=== PATIENT | male | born 1990 | race Caucasian/White ===

== ENCOUNTER 2023-06-22 09:57 | Outpatient (AMB) | payer BC, SELFPAY ==
[2023-06-22 10:02] VITALS: BP 124/78; PULSE 77; O2SAT 98; BMI 28.8
--- NOTE | 2023-06-22 10:02 | MHC.PC.OV ---
Vital Signs 06/22/23 10:02 Height 5 ft 10 in Weight 201 lb BMI 28.8 BP 124/78 Blood Pressure Location Lt brachial Position Sitting Pulse 77 Pulse Source Pulse Oximeter Pulse Oximetry (%) 98 Oxygen Delivery Method Room Air Intake Visit Reasons: Annual Exam Allergies No Known Allergies Allergy (Verified 06/22/23 10:02) Medication List - Last Reconciled 06/22/23 by Renard Fabian MD cetirizine (Zyrtec) 10 mg PO DAILY multivitamin 1 tab PO DAILY Tobacco use date assessed: 06/22/23 Dental Screening Dental Screen Date: 06/22/23 Did you have a dental visit in the last 12 months?: Yes Did you have a dental problem in the last 6 months where you did not have access to dental care?: No Was dental information given to patient?: Patient has dentist HPI Annual Exam HPI Details 32-year-old overweight male with a history of allergic rhinitis coming in for physical exam. Last seen in May 2022- dry cough - 6 weeks getting better- feels throat dry. occ heartburn PFSH Surgical History (Updated 07/20/21 @ 09:41 by Renard Fabian MD) Hx of LASIK No pertinent past surgical history Family History (Updated 06/22/23 @ 10:27 by Renard Fabian MD) Father Kidney malignancy Hypertension Mother Breast cancer Hypertension Paternal Grandfather Pancreatic cancer Paternal Uncle CVA (cerebral vascular accident) Paternal Aunt Kidney malignancy Social History (Updated 06/22/23 @ 10:27 by Renard Fabian MD) Housing: House Alcohol intake: current Patient Tobacco Use Status: Never used Tobacco e-Cigarette/Vaping Use: Never Used Second Hand Smoke Exposure: No Current occupational status: employed Cognitive needs: No Hearing needs: No Vision needs: No Questionnaire PHQ-9 Over the last 2 weeks, how often have you been bothered by any of the following problems? 1. Little interest or pleasure in doing things: not at all 2. Feeling down, depressed, or hopeless: not at all 3. Trouble falling or staying asleep, or sleeping too much: not at all 4. Feeling tired or having little energy: not at all 5. Poor appetite or overeating: not at all 6. Feeling bad about yourself - or that you are a failure or have let yourself or your family down: not at all 7. Trouble concentrating on things, such as reading the newspaper or watching television: not at all 8. Moving or speaking so slowly that other people could have noticed. Or the opposite - being so fidgety or restless that you have been moving around a lot more than usual: not at all 9. Thoughts that you would be better off or of hurting yourself in some way: not at all Total score: 0 Depression Screening Interpretation: Negative Depression Screening Done: Yes Source: Developed by Drs. Blaine Hallman, Geno Staton, Andres Maddox and colleagues, with an educational heena from [employer]. Thrive Questionnaire Date Thrive assessed: 06/22/23 I am a: Patient What is your living situation today?: I have a steady place to live Within the past 12 months, did the food you bought not last and you didn't have the money to get more?: Never true Within the past 12 months, did you worry whether your food would run out before you got money to buy more?: Never true Do you have trouble paying for medicines?: No Do you have trouble getting transportation to medical appointments?: No Do you have trouble paying your heating and electricity bill?: No Do you have trouble taking care of your child, family member or friend?: No Do you have trouble with day-to-day activities such as bathing, preparing meals, shopping, managing finances, etc.?: No Are you currently unemployed and looking for a job?: No Are you interested in more education?: No Currently or been in a relationship where the following occur: no concerns reported AUDIT C Alcohol Use Questionnaire (AUDIT-C) 1. How often do you have a drink containing alcohol?: Monthly or less 2. How many drinks containing alcohol do you have on a typical day when you are drinking?: 1 or 2 3. How often do you have six or more drinks on one occasion?: Never Total Score: 1 MARTITA-7 AMB Questionnaire MARTITA-7 Date MARTITA - 7 assessed: 06/22/23 Feeling nervous, anxious, or on edge: 0 = Not at all Not being able to stop or control worryin = Not at all Worrying too much about different things: 0 = Not at all Trouble relaxin = Not at all Being so restless that it is hard to sit still: 0 = Not at all Becoming easily annoyed or irritable: 0 = Not at all Feeling afraid as if something awful might happen: 0 = Not at all Total MARTITA-7 score (0-4 normal; 5-9 mild; 10-14 moderate; 15-21 severe): 0 Source: Developed by Drs. Blaine Hallman, Geno Staton, Andres Maddox and colleagues, with an educational heena from [employer]. Physical exam (Primary Care) Vital Signs: Last Vital Signs Pulse 77 06/22/23 10:02 BP 124/78 06/22/23 10:02 Pulse Ox 98 06/22/23 10:02 Oxygen Delivery Method Room Air 06/22/23 10:02 BMI result Body Mass Index 28.8 Tobacco/Smoking Status: Tobacco use Status Tobacco use date assessed 06/22/23 06/22/23 10:04 Patient Tobacco Use Status Never used Tobacco 06/22/23 10:04 e-Cigarette/Vaping Use Never Used 06/22/23 10:04 PHQ-9: PHQ-9 Score PHQ-9: Total score 0 06/22/23 10:04 Depression Screening Interpretation: Negative Thrive Assessment: Date of Thrive Assessment Date Thrive assessed 06/22/23 06/22/23 10:04 Currently or been in a relationship where the following occur: no concerns reported Const General: alert and awake HENMT Head: Yes normocephalic Ears: external ears normal and TM's normal bilaterally Face and sinus: Yes normal facial exam Mouth: moist mucous membranes Throat: Yes tonsils normal Eyes Conjunctivae: conjunctivae normal Pupils: Equal, round and reactive pupils present and Pupil accommodation reflex normal Direct Ophthalmoscopy: normal light reflex Neck Neck: No lymphadenopathy Thyroid: Thyroid normal Chest Chest palpation & inspection: normal inspection of the chest Resp Effort & Inspection: normal respiratory effort and no audible wheezes Auscultation: clear to auscultation bilaterally, no crackles, no wheezes and lung sounds not diminished Cardio Rate: regular rate Rhythm: regular rhythm Peripheral pulses: radial pulses present and dorsalis pedis present GI Palpation (GI): no masses Auscultation: normal bowel sounds and normoactive bowel sounds Rectal Exam - Male: Yes deferred Skin General skin exam: no rashes or lesions noted Rashes: no rashes Neuro General: deep tendon reflexes 2+ bilaterally Cranial nerves: Yes Equal, round and reactive pupils present, Yes Midline tongue present and Yes Ability to bilaterally elevate shoulders present Cognition (Neuro): normal cognition Gait exam (Neuro): Normal gait present Motor exam (neuro): 5/5 motor strength present throughout Deep tendon reflexes (DTR's): Right brachioradialis reflex intensity grade: 2+, Left brachioradialis reflex intensity grade: 2+, Right patellar reflex intensity grade: 2+ and Left patellar reflex intensity grade: 2+ Extrem General: No edema Office Procedures Flu Questionnaire Does the patient have a severe egg allergy?: No Does the patient have severe life threatening allergies?: No Does the patient have a fever or illness today?: No Has the patient ever had Guillain-[place] Syndrome?: No Has the patient ever had any past reaction to a flu shot?: No Immunizations flu vacc [id number] 6mos up(PF) 60 mcg(15 mcgx4)/0.5 mL IM syringe Performing Provider: Renard Fabian MD [facility] Administered by: Tamiko Bajwa CMA on 06/22/23 10:14 Dose Route Admin Location Dispensed Lot Number Expiration Date NDC Strategic Analyst 0.5 mL IM Left Deltoid 0.5 mL [id number] 02/25/24 [id number] [employer] VIS Given Date VIS Provided VIS Publication Date 06/22/23 Single Vaccine 21 Eligibility Eligibility Date Funding Source Not [facility] Eligible 06/22/23 Private Assessment and Plan Assessment & Plan (1) Annual physical exam: Code(s): Z00.00 - Encounter for general adult medical examination without abnormal findings (2) Multiple pigmented nevi: Code(s): D22.9 - Melanocytic nevi, unspecified (3) Dry mouth: Code(s): R68.2 - Dry mouth, unspecified (4) Allergic rhinitis: Code(s): J30.9 - Allergic rhinitis, unspecified Orders: Orders Free T4 (Free Thyroxine) Today R68.2 - Dry mouth, unspecified Lipid Panel Today E78.00 - Pure hypercholesterolemia, unspecified, R68.2 - Dry mouth, unspecified Vitamin B12 and Folate Today R68.2 - Dry mouth, unspecified Influenza [id number] Immunization Today Z23 - Encounter for immunization Complete Blood Count Auto Diff Today R68.2 - Dry mouth, unspecified Comprehensive Met. Panel Today R68.2 - Dry mouth, unspecified Thyroid Stimulating Hormone Today R68.2 - Dry mouth, unspecified Erythrocyte Sedimentation Rate Today R68.2 - Dry mouth, unspecified C Reactive Protein Today R68.2 - Dry mouth, unspecified Referrals Dermatology Referral D22.9 - Melanocytic nevi, unspecified Coding Level of Care Code Est Pt Prev Care 18-39y(85952) Diagnoses Annual physical exam Z00.00 Multiple pigmented nevi D22.9 Dry mouth R68.2 Allergic rhinitis J30.9
== END 2023-06-22 10:50 | disposition home or self-care (01) ==
PROVIDERS: Visit Provider Internal Medicine
DX: Z00.00 Encounter for general adult medical examination without abnormal findings (principal); D22.9 Melanocytic nevi, unspecified; R68.2 Dry mouth, unspecified; J30.9 Allergic rhinitis, unspecified; Z23 Encounter for immunization
CPT/HCPCS: 90471; 90686; 99395

== ENCOUNTER 2023-06-27 08:47 | Outpatient (REF) | payer BC, SELFPAY ==
[2023-06-27 09:21] LABS: MANUAL DIFF FLAG NO
[2023-06-27 09:34] LABS: Basophils Absolute Auto 0.1 X10*3/uL (0.0-0.2); Basophils Percent Auto 1.2 % (0-2); Eosinophils Absolute Auto 0.1 X10*3/uL (0.0-0.4); Eosinophils Percent Auto 1.4 % (0-4); Hematocrit 45.1 % (42.0-52.0); Hemoglobin 15.3 g/dl (14.0-18.0); Imm Gran Abs Auto 0.01 X10*3/uL (0.00-0.03); Imm Gran Pct Auto 0.2 % (0.0-0.4); Lymphocytes Absolute Auto 2.2 X10*3/uL (1.2-4.9); Lymphocytes Percent Auto 36.9 % (20-40); Mean Corpuscular HGB Conc 33.9 g/dl (31.0-36.0); Mean Corpuscular Hemoglobin 28.6 pg (27.0-33.0); Mean Corpuscular Volume 84.3 fL (80.0-98.0); Mean Platelet Volume 9.5 fL (9.4-12.4); Monocytes Absolute Auto 0.4 X10*3/uL (0.1-1.2); Monocytes Percent Auto 6.9 % (2-11); Neutrophils Absolute Auto 3.1 x10*3/uL (2.0-8.3); Neutrophils Percent Auto 53.4 % (45-73); Platelet Count 264 X10*3/uL (160-400); Red Blood Count 5.35 X10*6/uL (4.60-5.80); Red Cell Distribution Width 12.2 % (11.0-16.0); White Blood Count 5.8 X10*3/uL (4.8-10.8)
[2023-06-27 10:11] LABS: Alanine Aminotransferase 17 U/L (0-40); Albumin Level 4.7 g/dL (3.5-5.0); Alkaline Phosphatase 65 U/L (39-117); Anion Gap 13 (12-20); Aspartate Amino Transferase 16 U/L (5-37); Blood Urea Nitrogen 12 mg/dL (9-16); C Reactive Protein 0.19 mg/dL (< or = 0.50); Calcium 9.7 mg/dL (8.4-10.2); Carbon Dioxide 26 mmol/L (22-29); Chloride 107 mmol/L (96-108); Cholesterol 199 mg/dL (<200); Estimated Glomerular Filt Rate > 60; Glucose Random 104 mg/dL (60-115); HDL Cholesterol 36 mg/dL (>40); LDL Cholesterol Calculated 129 mg/dL (<100); Potassium 4.2 mmol/L (3.3-5.1); Sodium 142 mmol/L (135-145); Total Protein 7.2 g/dL (6.5-8.0); Triglycerides 170 mg/dL (<150)
[2023-06-27 10:20] LABS: Erythrocyte Sedimentation Rate 2 MM/HR (0-15)
[2023-06-27 10:27] LABS: Free T4 (Free Thyroxine) 0.97 ng/dL (0.71-1.85); Thyroid Stimulating Hormone 0.83 uIU/mL (0.32-4.0)
[2023-06-27 10:40] LABS: Vitamin B12 682 pg/mL (200-900)
== END 2023-06-27 08:48 | disposition home or self-care (01) ==
LOC: HO.LAB 08:47
PROVIDERS: PCP Internal Medicine; Visit Provider Internal Medicine
DX: R68.2 Dry mouth, unspecified (principal); E78.00 Pure hypercholesterolemia, unspecified
CPT/HCPCS: 36415; 80053; 80061; 82607; 82746; 84439; 84443; 85025; 85652; 86140

== ENCOUNTER 2024-06-24 09:07 | Outpatient (AMB) | payer OTHER, BC, SELFPAY ==
[2024-06-24 09:08] VITALS: BP 130/78; PULSE 87; O2SAT 97; BMI 28.7
--- NOTE | 2024-06-24 09:08 | A.OFFPC_ITS ---
Vital Signs 06/24/24 09:08 Height 5 ft 10 in Weight 200 lb BMI 28.7 BP 130/78 Blood Pressure Location Lt brachial Position Sitting Pulse 87 Pulse Source Pulse Oximeter Pulse Oximetry (%) 97 Oxygen Delivery Method Room Air Intake Visit Reasons: PE Senior Project Leader/Team Lead Required: No Allergies No Known Allergies Allergy (Verified 06/24/24 09:08) Medication List - Last Reconciled 06/24/24 by Renard Fabian MD cetirizine (Zyrtec) 10 mg PO DAILY multivitamin 1 tab PO DAILY Tobacco use date assessed: 06/24/24 Dental Screening Dental Screen Date: 06/24/24 Did you have a dental visit in the last 12 months?: Yes Did you have a dental problem in the last 6 months where you did not have access to dental care?: No Was dental information given to patient?: Patient has dentist HPI PE HPI Details 33-year-old overweight male coming in [facility] physical exam last seen in May last year. 2 months ago Lyme treatment. states had a bulseye rash treated 2 weeks aon antibiotic. fevers symptoms, muscle aches. Patient just became a father 1 month ago. [facility] Surgical History (Updated 07/20/21 @ 09:41 by Renard Fabian MD) Hx of LASIK No pertinent past surgical history Family History (Updated 06/24/24 @ 09:20 by Renard Fabian MD) Father Kidney malignancy Hypertension Mother Breast cancer Hypertension Heart attack Paternal Grandfather Pancreatic cancer Paternal Uncle CVA (cerebral vascular accident) Paternal Aunt Kidney malignancy Social History (Updated 06/24/24 @ 09:20 by Renard Fabian MD) Housing: House Alcohol intake: current Comment: once a month 1-2 drinks Patient Tobacco Use Status: Never used Tobacco e-Cigarette/Vaping Use: Never Used Second Hand Smoke Exposure: No Current occupational status: employed Cognitive needs: No Hearing needs: No Vision needs: No Questionnaire PHQ-9 Over the last 2 weeks, how often have you been bothered by any of the following problems? 1. Little interest or pleasure in doing things: not at all 2. Feeling down, depressed, or hopeless: not at all 3. Trouble falling or staying asleep, or sleeping too much: not at all 4. Feeling tired or having little energy: not at all 5. Poor appetite or overeating: not at all 6. Feeling bad about yourself - or that you are a failure or have let yourself or your family down: not at all 7. Trouble concentrating on things, such as reading the newspaper or watching television: not at all 8. Moving or speaking so slowly that other people could have noticed. Or the opposite - being so fidgety or restless that you have been moving around a lot more than usual: not at all 9. Thoughts that you would be better off or of hurting yourself in some way: not at all Total score: 0 Depression Screening Interpretation: Negative Depression Screening Done: Yes Source: Developed by Drs. Blaine Hallman, Andres Marie and colleagues, with an educational heena from [employer]. Thrive Questionnaire Date Thrive assessed: 06/22/23 AUDIT C Alcohol Use Questionnaire (AUDIT-C) 1. How often do you have a drink containing alcohol?: Monthly or less 2. How many drinks containing alcohol do you have on a typical day when you are drinking?: 1 or 2 3. How often do you have six or more drinks on one occasion?: Never Total Score: 1 MARTITA-7 AMB Questionnaire MARTITA-7 Date MARTITA - 7 assessed: 06/24/24 Feeling nervous, anxious, or on edge: 0 = Not at all Not being able to stop or control worryin = Not at all Worrying too much about different things: 0 = Not at all Trouble relaxin = Not at all Being so restless that it is hard to sit still: 0 = Not at all Becoming easily annoyed or irritable: 0 = Not at all Feeling afraid as if something awful might happen: 0 = Not at all Total MARTITA-7 score (0-4 normal; 5-9 mild; 10-14 moderate; 15-21 severe): 0 Source: Developed by Drs. Blaine Hallman, Geno Staton, Andres Maddox and colleagues, with an educational heena from [employer]. MARTITA-7 Assessment Billing MARTITA-7 Assessment Tool: MARTITA-7 Assessment 96111 Review of Systems Const Denies poor appetite and Denies weakness Eyes Denies no additional complaints ENT Reports Normal hearing present, Denies dizziness, Denies nasal congestion, Denies tinnitus and Denies sore throat Card Denies chest pain, Denies syncope, Denies rapid heart rate and Denies dyspnea Resp Denies cough and Denies dyspnea GI Denies change in stool character, Reports constipation, Denies diarrhea, Denies nausea and Denies vomiting Denies dysuria and Denies urinary frequency Neuro Reports Normal hearing present, Denies confusion, Denies dizziness, Denies syncope and Denies weakness Psych Denies confusion Physical exam (Primary Care) Vital Signs: Last Vital Signs Pulse 87 06/24/24 09:08 BP 130/78 06/24/24 09:08 Pulse Ox 97 06/24/24 09:08 Oxygen Delivery Method Room Air 06/24/24 09:08 BMI result Body Mass Index 28.7 Tobacco/Smoking Status: Tobacco use Status Tobacco use date assessed 06/24/24 06/24/24 09:10 Patient Tobacco Use Status Never used Tobacco 06/24/24 09:20 e-Cigarette/Vaping Use Never Used 06/24/24 09:20 PHQ-9: PHQ-9 Score PHQ-9: Total score 0 06/24/24 09:15 Depression Screening Interpretation: Negative Thrive Assessment: Date of Thrive Assessment Date Thrive assessed 06/22/23 06/24/24 09:10 Const General: No confusion Orientation/consciousness: No confusion HENMT Head: Yes normocephalic Ears: external ears normal and TM's normal bilaterally Face and sinus: Yes normal facial exam Mouth: moist mucous membranes Throat: Yes tonsils normal Eyes Conjunctivae: conjunctivae normal Pupils: Equal, round and reactive pupils present and Pupil accommodation reflex normal Direct Ophthalmoscopy: normal light reflex Neck Neck: No lymphadenopathy Thyroid: Thyroid normal Chest Chest palpation & inspection: normal inspection of the chest Resp Effort & Inspection: normal respiratory effort and no audible wheezes Auscultation: clear to auscultation bilaterally, no crackles, no wheezes and lung sounds not diminished Cardio Rate: regular rate Rhythm: regular rhythm Peripheral pulses: radial pulses present and dorsalis pedis present GI Other: Visual exam rectal area normal Palpation (GI): no masses Auscultation: normal bowel sounds and normoactive bowel sounds Rectal Exam - Male: Yes deferred Male General Exam: Yes normal external exam Skin General skin exam: no rashes or lesions noted Rashes: no rashes Neuro General: No confusion Cranial nerves: Yes Equal, round and reactive pupils present and Yes Normal hearing present Cognition (Neuro): normal cognition Gait exam (Neuro): Normal gait present Motor exam (neuro): 5/5 motor strength present throughout Deep tendon reflexes (DTR's): Right brachioradialis reflex intensity grade: 2+, Left brachioradialis reflex intensity grade: 2+, Right patellar reflex intensity grade: 2+ and Left patellar reflex intensity grade: 2+ Extrem General: No edema Office Procedures Flu Questionnaire Does the patient have a severe egg allergy?: No Does the patient have severe life threatening allergies?: No Does the patient have a fever or illness today?: No Has the patient ever had Guillain-[place] Syndrome?: No Has the patient ever had any past reaction to a flu shot?: No Immunizations Fluarix Triv [id number] (PF) 45 mcg (15 mcg x 3)/0.5 mL IM syringe Performing Provider: Renard Fabian MD [facility] Administered by: AVE Wan on 06/24/24 09:35 Dose Route Admin Location Dispensed Lot Number Expiration Date NDC Buffer Operator 0.5 mL IM Left Deltoid 0.5 mL [id number] 02/24/25 [id number] [place] VIS Given Date VIS Provided VIS Publication Date 06/24/24 Single Vaccine 21 Eligibility Eligibility Date Funding Source Not [facility] Eligible 06/24/24 Private Coding Level of Care Code Est Pt Prev Care 18-39y(96165) Diagnoses Annual physical exam Z00.00 Impaired glucose tolerance R73.02 Hypercholesterolemia E78.00 Overweight (BMI 25.0-29.9) E66.3 Additional Codes MARTITA-7 Assessment Billing - MARTITA-7 Assessment Tool: MARTITA-7 Assessment 92220 ([id number]) Assessment & Plan Assessment & Plan (1) Annual physical exam: Code(s): Z00.00 - Encounter for general adult medical examination without abnormal findings Category: Medical Plan: Patient is advised to eat healthy, keep well hydrated, keep active and have adequate sleep. (2) Impaired glucose tolerance: Code(s): R73.02 - Impaired glucose tolerance (oral) Category: Medical Plan: Decrease the amount of carbohydrate intake, pasta, bread, rice and potatoes are all sugar and that is aside from all the sweet stuff, remember that fruits are good but they are Sweet also. (3) Hypercholesterolemia: Code(s): E78.00 - Pure hypercholesterolemia, unspecified Category: Medical Plan: Avoid fried foods, chicken skin, eggs, butter margarine, pastries and meat. Be it pork or beef they have a lot of cholesterol LDL goal of less than 130 and triglyceride of less than 150 (4) Overweight (BMI 25.0-29.9): Code(s): E66.3 - Overweight Category: Medical Plan: Diet and exercise Orders: Orders Free T4 (Free Thyroxine) Today E78.00 - Pure hypercholesterolemia, unspecified Influenza [id number] Immunization Today Z23 - Encounter for immunization Lipid Panel Today E78.00 - Pure hypercholesterolemia, unspecified Comprehensive Met. Panel Today E78.00 - Pure hypercholesterolemia, unspecified Vitamin B12 and Folate Today E78.00 - Pure hypercholesterolemia, unspecified Thyroid Stimulating Hormone Today E78.00 - Pure hypercholesterolemia, unspecified Complete Blood Count Auto Diff Today E78.00 - Pure hypercholesterolemia, unspecified Hemoglobin A1c Today R73.02 - Impaired glucose tolerance (oral) Lyme IgG/IgM w/reflex to WB Today R73.02 - Impaired glucose tolerance (oral)
== END 2024-06-24 09:40 | disposition home or self-care (01) ==
PROVIDERS: PCP Internal Medicine; Visit Provider Internal Medicine
DX: Z00.00 Encounter for general adult medical examination without abnormal findings (principal); R73.02 Impaired glucose tolerance (oral); E78.00 Pure hypercholesterolemia, unspecified; E66.3 Overweight; Z23 Encounter for immunization

== ENCOUNTER → 2024-06-24 09:07 | Outpatient (BNVA) | payer OTHER, BC, SELFPAY | PROVIDERS: PCP Internal Medicine; Visit Provider Internal Medicine | DX: Z00.00 Encounter for general adult medical examination without abnormal findings (principal); R73.02 Impaired glucose tolerance (oral); E78.00 Pure hypercholesterolemia, unspecified; E66.3 Overweight; Z68.28 Body mass index [BMI] 28.0-28.9, adult; Z23 Encounter for immunization | CPT/HCPCS: 90471; 90656; 96127 ==

== ENCOUNTER 2024-06-28 09:44 | Outpatient (REF) | payer OTHER, SELFPAY ==
[2024-06-28 10:09] LABS: MANUAL DIFF FLAG NO
[2024-06-28 10:56] LABS: Basophils Absolute Auto 0.1 X10*3/uL (0.0-0.2); Basophils Percent Auto 1.1 % (0-2); Eosinophils Absolute Auto 0.1 X10*3/uL (0.0-0.4); Eosinophils Percent Auto 1.1 % (0-4); Hematocrit 45.2 % (42.0-52.0); Hemoglobin 15.4 g/dl (14.0-18.0); Imm Gran Abs Auto 0.01 X10*3/uL (0.00-0.03); Imm Gran Pct Auto 0.2 % (0.0-0.4); Lymphocytes Absolute Auto 2.2 X10*3/uL (1.2-4.9); Lymphocytes Percent Auto 35.6 % (20-40); Mean Corpuscular HGB Conc 34.1 g/dl (31.0-36.0); Mean Corpuscular Hemoglobin 28.3 pg (27.0-33.0); Mean Corpuscular Volume 83.1 fL (80.0-98.0); Mean Platelet Volume 9.8 fL (9.4-12.4); Monocytes Absolute Auto 0.4 X10*3/uL (0.1-1.2); Monocytes Percent Auto 6.7 % (2-11); Neutrophils Absolute Auto 3.4 x10*3/uL (2.0-8.3); Neutrophils Percent Auto 55.3 % (45-73); Platelet Count 250 X10*3/uL (160-400); Red Blood Count 5.44 X10*6/uL (4.60-5.80); Red Cell Distribution Width 12.2 % (11.0-16.0); White Blood Count 6.1 X10*3/uL (4.8-10.8)
[2024-06-28 11:07] LABS: Estimated Average Glucose 108 mg/dL; Hemoglobin A1C 133.7724 umol/L; Hemoglobin A1c % 5.4 % (<6.0); Total Hemoglobin (HGBA1C) 3826.2626 umol/L
[2024-06-28 12:08] LABS: Alanine Aminotransferase 23 U/L (0-40); Albumin Level 4.7 g/dL (3.5-5.0); Alkaline Phosphatase 63 U/L (39-117); Anion Gap 11 (12-20); Aspartate Amino Transferase 20 U/L (5-37); Bilirubin Total 0.8 mg/dL (0.0-1.0); Blood Urea Nitrogen 15 mg/dL (9-16); Calcium 10.2 mg/dL (8.4-10.2); Carbon Dioxide 27 mmol/L (22-29); Chloride 107 mmol/L (96-108); Cholesterol 219 mg/dL (<200); Estimated Glomerular Filt Rate > 60; Free T4 (Free Thyroxine) 0.97 ng/dL (0.71-1.85); Glucose Random 98 mg/dL (60-115); HDL Cholesterol 43 mg/dL (>40); LDL Cholesterol Calculated 152 mg/dL (<100); Potassium 4.3 mmol/L (3.3-5.1); Sodium 141 mmol/L (135-145); Thyroid Stimulating Hormone 0.59 uIU/mL (0.32-4.0); Total Protein 7.3 g/dL (6.5-8.0); Triglycerides 120 mg/dL (<150)
[2024-06-28 12:11] LABS: Folate 11.2 ng/mL (> or = 4.0); Vitamin B12 501 pg/mL (200-900)
[2024-07-01 22:49] LABS: Lyme Abs Screen <0.90 index
== END 2024-06-28 09:45 | disposition home or self-care (01) ==
LOC: HO.LAB 09:44
PROVIDERS: PCP Internal Medicine; Visit Provider Internal Medicine
DX: E78.00 Pure hypercholesterolemia, unspecified (principal); R73.02 Impaired glucose tolerance (oral)
CPT/HCPCS: 36415; 80053; 80061; 82607; 82746; 83036; 84439; 84443; 85025; 86617; 86618

== ENCOUNTER 2025-07-09 13:55 | Outpatient (AMB) | payer OTHER, SELFPAY ==
--- NOTE | 2025-07-09 14:14 | A.OFFPC_ITS ---
Vital Signs 07/09/25 14:15 Height 5 ft 10 in Weight 210 lb BMI 30.1 BP 130/62 Blood Pressure Location Lt brachial Position Sitting Pulse 78 Pulse Source Pulse Oximeter Pulse Oximetry (%) 98 Oxygen Delivery Method Room Air Intake Visit Reasons: annual exam Allergies No Known Allergies Allergy (Verified 07/09/25 14:15) Medication List - Last Reconciled 07/09/25 by Renard Fabian MD cetirizine (Zyrtec) 10 mg PO DAILY multivitamin 1 tab PO DAILY Tobacco use date assessed: 07/09/25 Dental Screening Dental Screen Date: 07/09/25 Did you have a dental visit in the last 12 months?: Yes Did you have a dental problem in the last 6 months where you did not have access to dental care?: No Was dental information given to patient?: Patient has dentist [facility] Surgical History (Updated 07/20/21 @ 09:41 by Renard Fabian MD) Hx of LASIK No pertinent past surgical history Family History (Updated 06/24/24 @ 09:20 by Renard Fabian MD) Father Kidney malignancy Hypertension Mother Breast cancer Hypertension Heart attack Paternal Grandfather Pancreatic cancer Paternal Uncle CVA (cerebral vascular accident) Paternal Aunt Kidney malignancy Social History (Updated 07/09/25 @ 14:43 by Renard Fabian MD) Housing: House Alcohol intake: current Comment: once Q2 weeks 1 wine Patient Tobacco Use Status: Never used Tobacco Tobacco use type: Cigarette e-Cigarette/Vaping Use: Never Used Second Hand Smoke Exposure: No Current occupational status: employed Cognitive needs: No Hearing needs: No Vision needs: No Questionnaire PHQ-9 Over the last 2 weeks, how often have you been bothered by any of the following problems? 1. Little interest or pleasure in doing things: not at all 2. Feeling down, depressed, or hopeless: not at all 3. Trouble falling or staying asleep, or sleeping too much: not at all 4. Feeling tired or having little energy: several days 5. Poor appetite or overeating: not at all 6. Feeling bad about yourself - or that you are a failure or have let yourself or your family down: not at all 7. Trouble concentrating on things, such as reading the newspaper or watching television: not at all 8. Moving or speaking so slowly that other people could have noticed. Or the opposite - being so fidgety or restless that you have been moving around a lot more than usual: not at all 9. Thoughts that you would be better off or of hurting yourself in some way: not at all Total score: 1 Source: Developed by Drs. Blaine Hallman, Geno Staton, Andres Maddox and colleagues, with an educational heena from [employer]. Thrive Questionnaire Date Thrive assessed: 07/02/25 I am a: Patient What is your living situation today?: I have a steady place to live Within the past 12 months, did the food you bought not last and you didn't have the money to get more?: Never true Within the past 12 months, did you worry whether your food would run out before you got money to buy more?: Never true Do you have trouble paying for medicines?: No Do you have trouble getting transportation to medical appointments?: No Do you have trouble paying your heating and electricity bill?: No Do you have trouble taking care of your child, family member or friend?: No Do you have trouble with day-to-day activities such as bathing, preparing meals, shopping, managing finances, etc.?: No Are you currently unemployed and looking for a job?: No Are you interested in more education?: No Please select the resources that you would like help with: None Currently or been in a relationship where the following occur: No concerns reported THRIVE Score: 0 AUDIT C Alcohol Use Questionnaire (AUDIT-C) 1. How often do you have a drink containing alcohol?: 2-4 times a month 2. How many drinks containing alcohol do you have on a typical day when you are drinking?: 1 or 2 3. How often do you have six or more drinks on one occasion?: Less than monthly Total Score: 3 MARTITA-7 AMB Questionnaire MARTITA-7 Date MARTITA - 7 assessed: 07/09/25 Feeling nervous, anxious, or on edge: 0 = Not at all Not being able to stop or control worryin = Not at all Worrying too much about different things: 0 = Not at all Trouble relaxin = Not at all Being so restless that it is hard to sit still: 0 = Not at all Becoming easily annoyed or irritable: 0 = Not at all Feeling afraid as if something awful might happen: 0 = Not at all Total MARTITA-7 score (0-4 normal; 5-9 mild; 10-14 moderate; 15-21 severe): 0 Source: Developed by Drs. Blaine Hallman, Geno Staton, Andres Maddox and colleagues, with an educational heena from [employer]. Review of Systems Const Denies poor appetite and Denies weakness Eyes Denies no additional complaints ENT Reports Normal hearing present, Denies dizziness, Denies nasal congestion, Denies tinnitus and Denies sore throat Card Denies chest pain, Denies syncope, Denies rapid heart rate and Denies dyspnea Resp Denies cough and Denies dyspnea GI Denies change in stool character, Reports constipation, Denies diarrhea, Denies nausea and Denies vomiting Denies dysuria and Denies urinary frequency Neuro Reports Normal hearing present, Denies confusion, Denies dizziness, Denies syncope and Denies weakness Psych Denies confusion Physical exam (Primary Care) Vital Signs: Last Vital Signs Pulse 78 07/09/25 14:15 BP 130/62 07/09/25 14:15 Pulse Ox 98 07/09/25 14:15 Oxygen Delivery Method Room Air 07/09/25 14:15 BMI result Body Mass Index 30.1 Tobacco/Smoking Status: Tobacco use Status Tobacco use date assessed 07/09/25 07/09/25 14:18 Patient Tobacco Use Status Never used Tobacco 07/09/25 14:43 Tobacco use type Cigarette 07/09/25 14:43 e-Cigarette/Vaping Use Never Used 07/09/25 14:43 PHQ-9: PHQ-9 Score PHQ-9: Total score 1 07/09/25 14:40 Thrive Assessment: Date of Thrive Assessment Date Thrive assessed 07/02/25 07/09/25 14:16 Currently or been in a relationship where the following occur: No concerns reported Const General: No confusion Orientation/consciousness: No confusion HENMT Head: Yes normocephalic Ears: external ears normal and TM's normal bilaterally Face and sinus: Yes normal facial exam Mouth: moist mucous membranes Throat: Yes tonsils normal Eyes Conjunctivae: conjunctivae normal Pupils: Equal, round and reactive pupils present and Pupil accommodation reflex normal Direct Ophthalmoscopy: normal light reflex Neck Neck: No lymphadenopathy Thyroid: Thyroid normal Chest Chest palpation & inspection: normal inspection of the chest Resp Effort & Inspection: normal respiratory effort and no audible wheezes Auscultation: clear to auscultation bilaterally, no crackles, no wheezes and lung sounds not diminished Cardio Rate: regular rate Rhythm: regular rhythm Peripheral pulses: radial pulses present and dorsalis pedis present GI Palpation (GI): no masses Auscultation: normal bowel sounds and normoactive bowel sounds Rectal Exam - Male: Yes deferred Skin General skin exam: no rashes or lesions noted Rashes: no rashes Neuro General: No confusion Cranial nerves: Yes Equal, round and reactive pupils present and Yes Normal hearing present Cognition (Neuro): normal cognition Gait exam (Neuro): Normal gait present Motor exam (neuro): 5/5 motor strength present throughout Deep tendon reflexes (DTR's): Right brachioradialis reflex intensity grade: 2+, Left brachioradialis reflex intensity grade: 2+, Right patellar reflex intensity grade: 2+ and Left patellar reflex intensity grade: 2+ Extrem General: No edema Office Procedures Flu Questionnaire Does the patient have a severe egg allergy?: No Does the patient have severe life threatening allergies?: No Does the patient have a fever or illness today?: No Has the patient ever had Guillain-[place] Syndrome?: No Has the patient ever had any past reaction to a flu shot?: No Immunizations Fluarix [id number] (PF) 45 mcg (15 mcg x 3)/0.5 mL IM syringe Performing Provider: Renard Fabian MD [facility] Administered by: Tamiko Bajwa CMA on 07/09/25 14:28 Dose Route Admin Location Dispensed Lot Number Expiration Date NDC [employer] 0.5 mL IM Left Deltoid 0.5 mL [id number] 02/24/26 [id number] [employer] VIS Given Date VIS Provided VIS Publication Date 07/09/25 Single Vaccine 24 Eligibility Eligibility Date Funding Source Not [facility] Eligible 07/09/25 Private Coding Level of Care Code Est Pt Prev Care [id number]([id number]) Diagnoses Annual physical exam Z00.00 Obesity (BMI 30.0-34.9) E66.9 Hypercholesterolemia E78.00 Impaired glucose tolerance R73.02 GERD (gastroesophageal reflux disease) K21.9 Assessment & Plan Assessment & Plan (1) Annual physical exam: Code(s): Z00.00 - Encounter for general adult medical examination without abnormal findings Category: Medical Plan: Patient is advised to eat healthy, keep well hydrated, keep active and have adequate sleep. (2) Obesity (BMI 30.0-34.9): Code(s): E66.9 - Obesity, unspecified Category: Medical Plan: Diet and exercise (3) Hypercholesterolemia: Code(s): E78.00 - Pure hypercholesterolemia, unspecified Category: Medical Plan: Avoid fried foods, chicken skin, eggs, butter margarine, pastries and meat. Be it pork or beef they have a lot of cholesterol LDL goal of less than 130 and triglyceride of less than 150. Blood work requested (4) Impaired glucose tolerance: Code(s): R73.02 - Impaired glucose tolerance (oral) Category: Medical Plan: Decrease the amount of carbohydrate intake, pasta, bread, rice and potatoes are all sugar and that is aside from all the sweet stuff, remember that fruits are good but they are Sweet also. (5) GERD (gastroesophageal reflux disease): Code(s): K21.9 - Gastro-esophageal reflux disease without esophagitis Category: Medical Plan: Avoid the foods that causes that usually spicy foods, tomato products, juices, coffee, soda and foods that your sensitive to. After eating do not lie down, allow 3-4 hours before in lie down. And keep the head of bed above 30 degrees to avoid the acid from going up. Plan History of Present Illness The patient is a 34-year-old obese male presenting for a physical examination. He has a history of impaired glucose tolerance and hypercholesterolemia. He was last seen in 2023. Since his last visit, the patient reports a 10-pound weight gain, which has increased his body mass index to 30, classifying him as obese. Blood work from last year was notable for an elevated cholesterol level of 152, but his blood count, electrolytes, blood sugar, liver function tests, B12, folic acid, and thyroid levels were all normal. The patient reports experiencing heartburn almost weekly, which occurs depending on his food intake and is relieved by taking Tums. He denies any new diagnoses or surgeries. He has no known drug allergies and takes Zyrtec and multivitamins. Family history is significant for kidney cancer in his father and aunt, breast cancer and a myocardial infarction in his mother, a stroke in his uncle, and pancreatic cancer in his grandfather. Health Maintenance The patient is up to date on his tetanus and flu immunizations. He was encouraged to stay hydrated, eat healthy, and remain active. He was provided with a lab request for follow-up blood work, and I will call him with the results. Anticipatory guidance was given regarding the ongoing presence of COVID-19. Social History - Alcohol use: Reports drinking one glass of wine approximately once every two weeks. - Tobacco use: Denies ever using cigarettes. - Illicit substance use: Denies any use of recreational drugs. - Family: He has one child who is one year old. Review of Systems - General: Denies fever. - HEENT: Reports good hearing. - Neurological: Denies syncope or dizziness. - Cardiovascular: Denies chest pains or heaviness. - Respiratory: Denies waking up with shortness of breath and has no problem climbing a flight of stairs. - Gastrointestinal: Reports heartburn almost weekly, depending on food intake, which is managed with Tums. - Gastrointestinal: Denies nausea, vomiting, problems with swallowing, or the sensation of food getting stuck. - Gastrointestinal: Denies diarrhea or constipation. - Genitourinary: Denies problems with urination and does not wake up at night to urinate unless disturbed by his child. Physical Exam General: Cooperative, healthy appearing, comfortable, no acute distress and well developed Orientation: Patient oriented x3 Limitations: No limitations Head: Normal to inspection Ears: Hearing grossly normal bilaterally Nose: Normal external nose present Face and sinus: Normal facial exam Eyes: Appearance normal, both eyes and all related structures Neck: Normal visual inspection and Yes full ROM Respiratory: Normal respiratory effort and able to speak in complete sentences. Clear to auscultation bilaterally Cardiovascular: Regular rate and rhythm. Normal S1 and S2 GI: Normal to inspection. Soft to palpation and nontender. Reports heartburn almost weekly, managed with TUMS Skin: No rashes or lesions noted Neuro: Patient oriented x3 Extremities: Normal to inspection Results - Labs from last year: - Total cholesterol: 152 (elevated) - Blood count: Normal - Electrolytes: Normal - Blood sugar: Normal - Liver function test: Normal - B12, folic acid, thyroid: Normal Plan Patient was informed and verbally consented to the use of an ambient scribe for clinic note documentation during this visit. 1. Obesity The patient has gained 10 pounds since his last visit, and his BMI is now 30, which classifies him as obese. The plan includes counseling on diet and exercise and encouraging him to keep active. 2. Hypercholesterolemia The patient has a history of hypercholesterolemia, with a cholesterol level of 152 last year. Given his recent weight gain, there is concern for worsening lipid levels. A new request for blood work has been issued to monitor his cholesterol, with an LDL goal of less than 130 mg/dL and triglycerides less than 150 mg/dL. The results will be communicated to the patient upon receipt. 3. Gastroesophageal Reflux Disease The patient reports experiencing heartburn almost weekly, which he manages with Tums. He was counseled on lifestyle modifications, including avoiding trigger f oods like spicy items and coffee, not lying down for four hours after eating, and elevating the head of his bed. The long-term risks of untreated GERD, such as Grady's esophagus, were discussed to encourage early management. Discussion Notes I discussed my concerns about the patient's 10-pound weight gain and noted that his BMI is now 30, classifying him as obese. We reviewed his history of elevated cholesterol, and I expressed concern that the weight gain could further impact his lab numbers. I provided a request for new blood work to re-evaluate his cholesterol, stating that our goal is an LDL below 130 mg/dL and triglycerides below 150 mg/dL. Regarding his weekly heartburn, I provided detailed counseling on lifestyle modifications, including avoiding trigger foods, not lying down for four hours after eating, and elevating the head of the bed. I explained the risk of developing Grady's esophagus from chronic acid reflux to emphasize the importance of managing these symptoms. We confirmed he is up to date on immunizations, having just received his flu shot. I advised him to continue healthy eating, stay active, and hydrate well. I also provided anticipatory guidance about the ongoing risk of COVID-19. I will call him with his blood work results. Patient Instructions - Please go to the lab to have your blood work done. - We will call you with the results of your blood tests. - Continue to focus on a healthy diet and exercise to manage your weight. - For your heartburn, try to avoid spicy foods, tomato products, juices, soda, and coffee, especially at dinner time. - Do not lie down for about four hours after you eat your last meal. - Use three or four pillows to prop your head up when you are lying down in bed. - Make sure to drink enough fluids and stay active. - Please be careful, as COVID-19 is still spreading. Orders: Orders Complete Blood Count Auto Diff Today E78.00 - Pure hypercholesterolemia, unspecified Lipid Panel Today E78.00 - Pure hypercholesterolemia, unspecified Hemoglobin A1c Today E78.00 - Pure hypercholesterolemia, unspecified Influenza [id number] Immunization Today Z23 - Encounter for immunization Comprehensive Met. Panel Today E78.00 - Pure hypercholesterolemia, unspecified Free T4 (Free Thyroxine) Today E78.00 - Pure hypercholesterolemia, unspecified Thyroid Stimulating Hormone Today E78.00 - Pure hypercholesterolemia, unspecified Vitamin B12 and Folate Today E78.00 - Pure hypercholesterolemia, unspecified
[2025-07-09 14:15] VITALS: BP 130/62; PULSE 78; O2SAT 98; BMI 30.1
== END 2025-07-09 14:54 | disposition home or self-care (01) ==
LOC: HO.HMCH 13:56
PROVIDERS: PCP Internal Medicine; Visit Provider Internal Medicine
DX: Z00.00 Encounter for general adult medical examination without abnormal findings (principal); E66.9 Obesity, unspecified; Z68.30 Body mass index [BMI] 30.0-30.9, adult; E78.00 Pure hypercholesterolemia, unspecified; R73.02 Impaired glucose tolerance (oral); K21.9 Gastro-esophageal reflux disease without esophagitis; Z23 Encounter for immunization

== ENCOUNTER → 2025-07-09 13:55 | Outpatient (BNVA) | payer OTHER, SELFPAY | PROVIDERS: PCP Internal Medicine; Visit Provider Internal Medicine | DX: Z00.00 Encounter for general adult medical examination without abnormal findings (principal); E66.9 Obesity, unspecified; E78.00 Pure hypercholesterolemia, unspecified; R73.02 Impaired glucose tolerance (oral); K21.9 Gastro-esophageal reflux disease without esophagitis; Z23 Encounter for immunization; Z68.30 Body mass index [BMI] 30.0-30.9, adult | CPT/HCPCS: 90471; 90656; 96127 ==